=== PATIENT | female | born 1975 | race Hispanic/Latino ===

== ENCOUNTER 2022-08-16 10:05 | Emergency (ER) | payer SELFPAY ==
[~2022-08-16] VITALS: Ht 144.8 cm; Wt 82.5 kg
[2022-08-16] VITALS (12 sets, daily range): BP systolic 94–119; BP diastolic 36–80
[2022-08-16] MEDS ORDERED: MEDDOSEPAK PO (14:51)
== END 2022-08-16 16:25 | disposition home or self-care (01) | DRG 153 ==
LOC: ED 10:05
DX: J06.9 Acute upper respiratory infection, unspecified (principal); Z20.822 Contact with and (suspected) exposure to COVID-19

== ENCOUNTER 2022-11-21 12:33 | Inpatient (IN) | payer SELFPAY ==
[2022-11-21] VITALS (45 sets, daily range): BP systolic 86–122; BP diastolic 30–66
[~2022-11-21] VITALS: Ht 144.8 cm; Wt 81.8 kg
[~2022-11-21 12:33] MED LIST: MEDDOSEPAK PO
--- NOTE | 2022-11-21 12:51 | NUR ---
PATIENT TAKEN TO ROOM 9. PROVIDER AWARE OF PATIENT CONDITION.
[2022-11-21 13:00] LABS: URINE BLOOD DIPSTICK Moderate (NEGATIVE); URINE GLUCOSE - DIPSTICK Negative (NEGATIVE); URINE KETONE Trace mg/dL (NEGATIVE); URINE LEUK ESTERASE Trace (NEGATIVE); URINE NITRITE - DIPSTICK Negative (Negative); URINE PH >=9.0 (4.5-8.0); URINE PROTEIN - DIPSTICK 30 mg/dL (NEG-TRACE); URINE SPECIFIC GRAVITY 1.015
[2022-11-21 13:04] LABS: BASO% 0.3 % (0-3); EOS% 0.1 % (0-8); HEMATOCRIT 20.9 % (37.0-47.0); IMMATURE GRANULOCYTES 0.3 % (0.0-5.0); LYMPH% 7.7 % (15-41); MEAN CELL VOLUME 59.2 fL CALC (80.0-100.0); MEAN CORPUSCULAR HGB 14.4 pG CALC (26.0-32.0); MEAN CORPUSCULAR HGB CONC 24.4 g/dL CAL (32.0-36.0); MONO% 2.7 % (2-13); NEUT# 9.06 thou/uL (2.00-7.15); NEUT% 88.9 % (42-76); RED BLOOD COUNT 3.53 mill/uL (4.20-5.60); RED CELL DISTRI WIDTH 24.5 % (11.5-15.5)
[2022-11-21 13:07] LABS: HEMOGLOBIN 5.1 g/dl (12.0-16.0)
[2022-11-21 13:09] LABS: URINE COLOR Yellow; URINE WBC 0-2 WBC/hpf (0-5)
[2022-11-21 13:09] LABS: ALBUMIN 4.3 g/dL (3.2-5.0); ALKALINE PHOSPHATASE 88 u/l (38-126); ANION GAP 14 (6-22 (CALC)); BILIRUBIN, TOTAL 0.6 mg/dL (0.02-1.3); BUN 8 mg/dL (7-17); BUN/CREATININE RATIO 11 (12-20 (CALC)); CARBON DIOXIDE 23 mmol/l (22-30); CHLORIDE 105 mmol/l (95-108); CREATININE 0.7 mg/dL (0.5-1.0); GFR FOR AFR.AMER. > 60 ML/MIN (>=60 (CALC)); GFR OTHER RACES > 60 ML/MIN (>=60 (CALC)); POTASSIUM 3.8 mmol/l (3.5-5.1); SGOT/AST 40 u/l (14-36); SODIUM 138 mmol/l (137-146); TOTAL PROTEIN 7.6 g/dL (6.3-8.2)
[2022-11-21 13:10] LABS: URINE EPITHELIAL CELLS MODERATE EPI/hpf (0-FEW)
--- NOTE | 2022-11-21 14:00 | NUR ---
PT LYING IN BED SUPINE, C/O GENERAL WEAKNESS, REPORTS HEAVY VAGINAL BLEEDING X ONE WEEK, SPOTTING TODAY AND EXPOSURE TO COVID 8 DAYS AGO. MILD COUGH NOTED. PT HYPOTENSIVE, SHRIMP CLEANER SHOWS SR
--- NOTE | 2022-11-21 16:00 | NUR ---
OOB TO BSC WITH NO ASSIST , GAIT STEADY. PT VOIDED APPROXIMATELY 200CC YELLOW URINE. NO COMPLAINTS OF DIZZINESS WHEN TRANSFERRING TO BSC.
[2022-11-21 17:35] LABS: HEMOGLOBIN 5.4 g/dl (12.0-16.0)
--- NOTE | 2022-11-21 18:01 | NUR ---
HOB ELEVATED, VSS. NO COMPLAINTS VOICED. AIRWAY PATENT, RESP EVEN AND NON LABORED, SKIN P/W/D.
--- NOTE | 2022-11-21 19:40 | NUR ---
PT RESTING. BLOOD INFUSING. SITE GOOD. NAD. VSS.
--- NOTE | 2022-11-21 22:00 | NUR ---
REPORT TO JENNIFER/[facility]
--- NOTE | 2022-11-21 22:10 | NUR ---
PT RESTING. NAD. TO FLOOR VIA W/C ON POCKET MONITOR. VSS. NAD.
[2022-11-22] VITALS (14 sets, daily range): BP systolic 104–116; BP diastolic 44–72
[2022-11-22 00:33] LABS: HEMATOCRIT 25.9 % (37.0-47.0); MEAN CORPUSCULAR HGB 17.6 pG CALC (26.0-32.0); RED BLOOD COUNT 3.97 mill/uL (4.20-5.60); RED CELL DISTRI WIDTH 28.1 % (11.5-15.5)
[2022-11-22 00:43] LABS: MEAN CELL VOLUME 65.2 fL CALC (80.0-100.0)
--- NOTE | 2022-11-22 02:36 | NUR ---
pt received from er via stretcher at 2339 11/21/22 . alert and oriented x 3. kyrgyz speaking nurse with pt and assisted with admission process. 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 pt corey fluids and food well. medicated with tylenol for a headache with good effect. received 2 units prbcs in ER. ordered another unit prbcs infusing at this time. vss. sleeping . all safety precautions maintained. call light in reach. ambulates with supervison to br. voided large amt.
--- NOTE | 2022-11-22 06:45 | NUR ---
PT TOLERATED 1 UNIT PRBCS WITH NO ADVERSE REACTION. SLEEPING IN NAPS. HAS MENSES. MAXI PADS PROVIDED. VSS. ALL SAFETY PRECAUTIONS MAINTAINED. CALL LIGHT IN REACH. AMBULATES TO BR WITH SUPERVISON WITHOUT DIFFICULTY.
[2022-11-22 06:49] LABS: HEMATOCRIT 27.7 % (37.0-47.0); HEMOGLOBIN 7.8 g/dl (12.0-16.0); MEAN CELL VOLUME 67.9 fL CALC (80.0-100.0); MEAN CORPUSCULAR HGB 19.1 pG CALC (26.0-32.0); MEAN CORPUSCULAR HGB CONC 28.2 g/dL CAL (32.0-36.0); RED BLOOD COUNT 4.08 mill/uL (4.20-5.60); RED CELL DISTRI WIDTH 29.6 % (11.5-15.5)
--- NOTE | 2022-11-22 08:00 | NUR ---
PATIENT RESTING IN BED. PATIENT REPORTS NO NEW CONCERNS AWAITING FOR FURTHER TESTING. ASSESSMENT DONE. PLAN OF CARE ONGOING.
--- NOTE | 2022-11-22 11:06 | NUR ---
ROUNDED WITH MD. PATIENT STATED FEELING BETTER. POSSIBLE DISCHARGE THIS AFTERNOON DEPENDING ON LABS. PLAN OF CARE ONGOING.
--- NOTE | 2022-11-22 13:32 | NUR ---
AWAITING FOR NEW LAB WORK FOR POSSSIBLE DISCHARGE HOME. NO NEW CONCERNS. PLAN OF CARE ONGOING.
[2022-11-22 14:46] LABS: HEMATOCRIT 27.6 % (37.0-47.0); HEMOGLOBIN 7.6 g/dl (12.0-16.0); MEAN CORPUSCULAR HGB 18.4 pG CALC (26.0-32.0); MEAN CORPUSCULAR HGB CONC 27.5 g/dL CAL (32.0-36.0); RED BLOOD COUNT 4.12 mill/uL (4.20-5.60); RED CELL DISTRI WIDTH 29.5 % (11.5-15.5)
--- NOTE | 2022-11-22 17:07 | NUR ---
Discharge instructions given. Patient verbalizes understanding of same. Discharged in stable condition via [facility]. All belongings sent with pt.
== END 2022-11-22 17:07 | disposition home or self-care (01) | DRG 811 ==
LOC: ED 12:33 → ED-I 18:01 → ED 18:09 → MS2 18:10
PROVIDERS: Family Medicine; ADMIT Student in an Organized Health Care Education/Training Program; ATTEND Student in an Organized Health Care Education/Training Program
PROC: 30233N1 Transfusion of Nonautologous Red Blood Cells into Peripheral Vein, Percutaneous Approach (ICD-10-PCS; principal; 2022-11-21)
PROC: 30233N1 Transfusion of Nonautologous Red Blood Cells into Peripheral Vein, Percutaneous Approach (ICD-10-PCS; 2022-11-21)
PROC: 30233N1 Transfusion of Nonautologous Red Blood Cells into Peripheral Vein, Percutaneous Approach (ICD-10-PCS; 2022-11-22)
DX: D62 Acute posthemorrhagic anemia (principal); U07.1 COVID-19; N92.1 Excessive and frequent menstruation with irregular cycle
CPT/HCPCS: P9016

== ENCOUNTER 2023-05-06 07:03 | Emergency (ER) | payer SELFPAY ==
[~2023-05-06] VITALS: Ht 144.8 cm; Wt 80.0 kg
[2023-05-06] VITALS (16 sets, daily range): BP systolic 89–113; BP diastolic 39–63
[~2023-05-06 07:03] MED LIST changes: +CYCLOBENZAPRINE10 MG PO; +IBUPROFEN600 MG PO
== END 2023-05-06 12:33 | disposition home or self-care (01) | DRG 866 ==
LOC: ED 07:03
DX: B34.9 Viral infection, unspecified (principal); I10 Essential (primary) hypertension; Z20.822 Contact with and (suspected) exposure to COVID-19